=== PATIENT | female | born 1980 | race Caucasian/White ===

== ENCOUNTER 2017-10-09 00:43 | Emergency (ER) | payer SELFPAY ==
[~2017-10-09] VITALS: Ht 162.6 cm; Wt 55.0 kg
[2017-10-09 00:54] VITALS: BP 115/71
== END 2017-10-09 02:37 | disposition left against medical advice (07) ==
LOC: ER 00:46
DX: R05 Cough (principal); R68.89 Other general symptoms and signs; Z53.21 Procedure and treatment not carried out due to patient leaving prior to being seen by health care provider